=== PATIENT | male | born 1995 | race Caucasian/White ===

== ENCOUNTER 2020-02-25 07:05 | Emergency (ER) | payer OTHER, SELFPAY ==
[2020-02-25 07:06] VITALS: BP 162/100; PULSE 119; RESP 20; TEMP 37; O2SAT 100; BMI 33.2
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
[2020-02-25] MEDS: LORazepam 2 MG/ML Syringe 1 MG IV (08:42)
[2020-02-25 09:04] VITALS: BP 108/69; PULSE 72; RESP 15; O2SAT 97
== END 2020-02-25 09:05 | disposition home or self-care (01) ==
PROVIDERS: Emergency Provider Emergency Medicine; PCP Family Medicine
DX: S20.221A Contusion of right back wall of thorax, initial encounter (principal); S40.022A Contusion of left upper arm, initial encounter; V43.52XA Car driver injured in collision with other type car in traffic accident, initial encounter; W22.11XA Striking against or struck by driver side automobile airbag, initial encounter; Y93.9 Activity, unspecified; Y92.410 Unspecified street and highway as the place of occurrence of the external cause; Y99.8 Other external cause status
CPT/HCPCS: 71260; 73030; 73090; 99285; Q9967; A4216

== ENCOUNTER 2020-03-25 11:09 | Emergency (ER) | payer OTHER, SELFPAY ==
[2020-03-25 11:10] VITALS: BP 148/98; PULSE 127; RESP 20; TEMP 36.3; BMI 32.6
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
--- NOTE | 2020-03-25 13:02 | ED.DEP ---
ED Disposition - Plan for ED Patient: Instructions: ED Sprain Strain Neck Prescriptions: cycloBENZAPRine HCl [Flexeril] 10 mg PO TID PRN #20 tab PRN Reason: Muscle Spasm Prescription Printed Naproxen [Naprosyn] 500 mg PO BID PRN #20 tab Prescription Printed Referrals: Rehan Alexis MD [Primary Care Provider] - 5-7 Days
== END 2020-03-25 13:12 | disposition home or self-care (01) ==
LOC: ED 12:26
PROVIDERS: Emergency Provider Emergency Medicine; PCP Family Medicine
DX: S16.1XXA Strain of muscle, fascia and tendon at neck level, initial encounter (principal); S29.012A Strain of muscle and tendon of back wall of thorax, initial encounter; V89.2XXA Person injured in unspecified motor-vehicle accident, traffic, initial encounter
CPT/HCPCS: 72040; 72070; 99281